=== PATIENT | male | born 1975 | race Caucasian/White ===

== ENCOUNTER 2017-07-14 13:23 | Emergency (ER) | payer MEDICAID, OTHER ==
[2017-07-14 13:35] VITALS: BP 147/107
[2017-07-14] MEDS ORDERED: Acetaminophen/HYDROcodone 325-5 MG Tab PO ONE (14:48)
[2017-07-14] MEDS ORDERED: Ketorolac 60 MG/2 ML SDV IM ONE (14:48)
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
== END 2017-07-14 15:08 | disposition home or self-care (01) ==
LOC: JD.ED 13:23
DX: G89.29 Other chronic pain (principal); M54.2 Cervicalgia; M54.9 Dorsalgia, unspecified; M25.50 Pain in unspecified joint; F17.210 Nicotine dependence, cigarettes, uncomplicated; Z79.899 Other long term (current) drug therapy
CPT/HCPCS: 96372; 99283; A9270; J1885